=== PATIENT | male | born 1970 | race Caucasian/White ===

== ENCOUNTER 2018-01-12 09:06 | Observation (INO) ==
--- NOTE | 2018-01-12 09:38 | Emergency Department Note ---
ED Disposition Clinical Impression: Small bowel obstruction Abdominal pain Qualifiers: Abdominal location: lower abdomen, unspecified Qualified Code(s): R10.30 - Lower abdominal pain, unspecified Disposition: Admitted as Observation Condition on Discharge: Fair Time of Disposition: 12:48 - Critical Care Critical Care Time: No Attestation: On 01/12/18, the high probability of a clinically significant, sudden or life threatening deterioration of the following system(s) required my full and direct attention, intervention and personal management. The time I documented below is in addition to time spent performing reported procedures but includes the following listed in this critical care notation. Medical Decision Making - Medical Records Medical records reviewed: Yes: I reviewed the patient's medical records. - Wilber Inquiry Pt receiving controlled substance: No Wilber was queried for this patient: No Vital Signs: 01/12/18 09:06 01/12/18 11:06 Temperature 98.1 F 98.0 F Temperature Source Oral Oral Pulse Rate [Right Radial] 76 65 Respiratory Rate 16 16 Blood Pressure [Right Arm] 150/101 148/100 Blood Pressure Mean [Right Arm] 117 116 Blood Pressure Source [Right Arm] Automatic Cuff Automatic Cuff Blood Pressure Position [Right Arm] Sitting 02 Sat by Pulse Oximetry 99 99 Oxygen Delivery Method Room Air Room Air - Lab Data Lab results reviewed: Yes: I reviewed the patient's lab results. Lab Results 01/12/18 09:37: Urine Color Yellow, Urine Appearance Clear, Urine pH 6.0, Ur Specific [place] <= 1.005, Urine Protein Negative, Urine Glucose (UA) Negative, Urine Ketones Negative, Urine Blood 1+, Urine Nitrate Negative, Urine Bilirubin Negative, Urine Urobilinogen 0.2, Ur Leukocyte Esterase Negative, Urine Bacteria Trace 01/12/18 09:47: WBC 13.1 H, RBC 5.44, Hgb 15.4, Hct 47.6, MCV 87.5, MCH 28.4, MCHC 32.4, RDW 12.9, Plt Count 452 H, MPV 6.9 L, Neut % (Auto) 58.6, Lymph % ( Auto) 28.5, [place] % (Auto) 7.7, Eos % (Auto) 4.7, Baso % (Auto) 0.6, Neut # (Auto ) 7.7, Lymph # (Auto) 3.7, [place] # (Auto) 1.0, Eos # (Auto) 0.6 H, Baso # (Auto) 0.1 01/12/18 09:47: Sodium 141, Potassium 4.2, Chloride 103, Carbon Dioxide 28, Anion Gap 14.2, BUN 10, Creatinine 0.97, Estimated Creat Clear 112, Estimated GFR 82, Est GFR ( Amer) 100, Glucose 111 H, Calcium 9.6, Total Bilirubin 1.1 H, AST 22, ALT 47, Alkaline Phosphatase 89, Total Protein 8.4 H, Albumin 4.1 , Globulin 4.3 H, Albumin/Globulin Ratio 1.0 L, Lipase 72 L 01/12/18 09:47: Lactic Acid 0.9 Result diagrams: 01/12/18 09:47 01/12/18 09:47 Orders (Tests/Meds): ED MEDICATIONS Discontinued Medications Generic Name Dose Route Start Last Admin Trade Name Freq PRN Reason Stop Dose Admin Diatrizoate Meglum/Diatrizoate Sod 30 ml 01/12/18 10:30 01/12/18 10:30 Gastrografin 66%-10% 30ml PO 01/12/18 10:31 30 ml ONCE ONE Administration Sodium Chloride 1,000 mls @ 999 mls/hr 01/12/18 09:30 01/12/18 10:15 Sod Chlor 0.9% 1000ml Bag IV 01/12/18 10:30 999 mls/hr .[id number] CHENCHO Administration Iopamidol 75 ml 01/12/18 12:10 01/12/18 12:11 [id number]; 75ml Vial IV 01/12/18 12:11 75 ml ONCE ONE Administration Ketorolac Tromethamine 30 mg 01/12/18 09:28 01/12/18 10:15 Toradol 30mg/Ml Vial IV 01/12/18 09:29 30 mg ONCE ONE Administration Sodium Chloride 10 ml 01/12/18 12:10 01/12/18 12:11 Rad-Saline Flush 10ml Syringe IV 01/12/18 12:11 10 ml ONCE ONE Administration ORDERS Category Date Time Status CT abdomen pelvis w con Stat Cat Scan 01/12/18 09:42 Taken Diarrhea Panel, PCR Stat Lab 01/12/18 09:28 Ordered Blood Culture Stat Micro 01/12/18 09:47 Received - CT Data CT Scan: Abdomen, Pelvis Time Received: 12:[address] Reviewed: Yes: I have reviewed the patient's CT results, I discussed the CT results w/the radiologist, I have viewed the radiologist's interpretation Preliminary Findings: Abnormal Findings Narrative: ? dilated loops of small bowel and ? appendix at upper limits of normal...discussed with Dr. Rick and he will admit to OBS and re-evaluate pt. Keep pt NPO Abdominal Pain HPI - General Chief Complaint: Abdominal Pain Stated Complaint: Pain in Back into stomach Time Seen by Provider: 01/12/18 09:31 Mode of Arrival: Ambulatory Limitations: No Limitations Description of Symptoms (Recalled from ER Triage Doc. by RN): Back pain started thrusday across the middle of back. Pain came to abd saturday. pt describes pain as generalized abd pain across the entire abd and states "it feels like a hernia." pt reports cramps, loose stools x2 on and 1 loose stool on saturday. reports stool is semi solid today, but black in color. pt states his stools are usually always dark "because he probably takes more vitamins then he should and because he takes nexium." pt denies vomiting, but states he has tried to make himself vomit. Pt also reports that he ate wild strawberries saturday or saturday. - History of Present Illness HPI narrative: Pt comes to the ED with abd pain and back pain since ...now mostly in the Abdomen. 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 Pain seemed to start in back and now in lower abdomen bilaterally. complaint: abdominal pain Onset (ago): day(s) Consistency: intermittent Location: LLQ, RLQ Severity: moderate Quality: cramping, fullness - Related Data Home Medications Medication Instructions Recorded Confirmed Aspirin [Aspir 81] 81 mg PO DAILY 01/12/18 01/12/18 Allergies Allergy/AdvReac Type Severity Reaction Status Date / Time codeine Allergy Intermediate Vomiting Verified 01/12/18 09:27 morphine Allergy Intermediate Vomiting Verified 01/12/18 09:27 Penicillins Allergy Intermediate Hives Verified 01/12/18 09:27 [facility] History I have reviewed the patient's past medical history: Yes Medical History: Denies:: Diabetes Mellitus Type 1, Diabetes Mellitus Type 2, MRSA Amputation: No - Social History Smoking Status: Current every day smoker Tobacco Type: cigarettes, smokeless tobacco # Packs/Day (cigarettes): 1 Alcohol Intake: never - Psychiatric History Expresses thoughts of harming self/others: None Suicide Plan Description: No Plan ROS Obtained: Yes All systems reviewed & no additional complaints - Constitutional Constitutional: Reports system reviewed and no additional complaints, except as docu - Eyes Eyes: Reports system reviewed and no additional complaints, except as docu - Gastrointestinal Gastrointestingal: Reports: system reviewed and no additional complaints, except as docu Physical Exam - General General appearance: alert, in no apparent distress - Head Head exam: atraumatic - Eye Eye exam: Present: normal appearance - ENT ENT exam: Present: normal exam - Neck Neck exam: Present: normal inspection - Respiratory Respiratory exam: Present: normal lung sounds bilaterally - Cardiovascular Cardiovascular exam: Present: regular rate, normal rhythm - Abdominal Exam Abdominal exam: Present: tenderness (in lower abdomen bilaterally but no rebound or guarding), normal bowel sounds - Neurological Exam Neurological exam: Present: alert, oriented X3 - Psychiatric Psychiatric exam: Present: normal affect
[2018-01-12 09:44] LABS: Appearance,Urine CLEAR (Clear); Bilirubin,Urine Negative (Negative); Blood, Urine 1+ (Negative); Color,Urine YELLOW (Yellow); Glucose,Urine (UA) Negative (Negative); Ketones,Urine Negative (Negative); Leukocyte Esterase,Urine Negative (Negative); Microscopic, Urine URINE MICROSCOPIC (MICROSCOPIC); Protein,Urine Negative (Negative); Specific Gravity, Urine <= 1.005 (1.005-1.030); Urobilinogen,Urine 0.2 EU/dl (0.2)
[2018-01-12 09:50] LABS: Bacteria,Urine Trace /lpf
[2018-01-12 10:04] LABS: Basophils # 0.1 K/mm3 (0-0.2); Basophils % 0.6 % (0.1-2.0); Eosinophils # 0.6 K/mm3 (0.0-0.4); Eosinophils % 4.7 % (0.1-12.0); Hematocrit 47.6 % (42.0-52.0); Hemoglobin 15.4 g/dL (14.1-18.0); Lymphocytes # 3.7 K/mm3 (0.7-4.5); Lymphocytes % 28.5 K/mm3 (10-50); Mean Corpuscular HGB Conc 32.4 g/dL (31.8-35.4); Mean Corpuscular Hemoglobin 28.4 pg (27.0-31.2); Mean Corpuscular Volume 87.5 fl (80-94); Mean Platelet Volume 6.9 fl (7.4-10.4); Monocytes % 7.7 % (1.7-9.3); Neutrophils # 7.7 K/mm3 (1.8-7.8); Neutrophils % 58.6 % (37.0-80.0); Platelet Count 452 K/mm3 (142-424); Red Blood Count 5.44 M/mm3 (4.60-6.20); Red Cell Distribution Width 12.9 % (11.5-17.5); White Blood Count 13.1 K/mm3 (4.8-10.8)
[2018-01-12 10:20] LABS: Albumin Level 4.1 gm/dL (3.4-5.0); Anion Gap 14.2 mEq/L (5-15); Bilirubin,Total 1.1 mg/dL (0.2-1.0); Calcium 9.6 mg/dL (8.5-10.1); Globulin 4.3 gm/dl (1.3-3.2); Potassium 4.2 mmoL/L (3.5-5.1); Total Protein,Serum 8.4 gm/dL (6.4-8.2)
--- NOTE | 2018-01-12 14:03 | History & Physical Report ---
HPI HPI: Chief complaint: Abdominal pain Patient is a 48-year-old white had developed some lower mid back pain on , 01/09/18. Patient states that 2 days prior to that he had eaten at least a handful of wild strawberries. The back pain was followed by several loose stools which he describes as water. He then had radiation of pain around to the mid anterior abdomen. He had normalization of his bowel movements. He states that he has felt full and has bloating postprandially. He has not had any nausea. He did try to vomit to help alleviate his symptoms. He presented to the emergency department this morning with these ongoing symptoms. He was found to have a mild leukocytosis with normal differential. He underwent CT scan with IV and oral contrast. Preliminary report was equivocal with some mild small bowel distention and 7 mm appendix reportedly. Surgery was contacted regarding recommendations. Plan was for admission for observation for possible early bowel obstruction versus early appendicitis. [facility] History Medical History: Reports:: Gastroesophageal Reflux Disease(GERD), Hypertension Denies:: Diabetes Mellitus Type 1, Diabetes Mellitus Type 2, MRSA Other Surgeries: Yes: Hernia Repair Amputation: No - *Social History Smoking Status: Current every day smoker Tobacco Type: cigarettes, smokeless tobacco # Packs/Day (cigarettes): 1 Alcohol Intake: never - Psychiatric History Expresses thoughts of harming self/others: None Suicide Plan Description: No Plan Review of Systems - Constitutional Denies anorexia - Eyes Denies change in vision - ENT Denies abnormal hearing - *Cardiovascular Denies chest pain - *Respiratory Denies shortness of breath - *Gastrointestinal Reports abdominal pain, Reports belching, Reports bloating, Reports change in bowel habits, Reports loose stools, Reports heartburn, Reports feeling full early - *Genitourinary Denies difficulty urinating - *Musculoskeletal Denies abnormal walking - *Neurologic Denies dizziness - Psychiatric Denies anxiety Meds Home Medications Medication Instructions Recorded Confirmed Type Aspirin [Aspir 81] 81 mg PO DAILY 01/12/18 01/12/18 History Allergies Allergy/AdvReac Type Severity Reaction Status Date / Time codeine Allergy Intermediate Vomiting Verified 01/12/18 09:27 morphine Allergy Intermediate Vomiting Verified 01/12/18 09:27 Penicillins Allergy Intermediate Hives Verified 01/12/18 09:27 Exam Vital signs and Labs for Last 24 Hours: Temp Pulse Resp BP Pulse Ox 98.0 F 64 18 149/96 100 01/12/18 13:27 01/12/18 13:27 01/12/18 13:27 01/12/18 13:27 01/12/18 12:30 Laboratory Results - last 24 hr 01/12/18 09:37: Urine Color Yellow, Urine Appearance Clear, Urine pH 6.0, Ur Specific [place] <= 1.005, Urine Protein Negative, Urine Glucose (UA) Negative, Urine Ketones Negative, Urine Blood 1+, Urine Nitrate Negative, Urine Bilirubin Negative, Urine Urobilinogen 0.2, Ur Leukocyte Esterase Negative, Urine Bacteria Trace 01/12/18 09:47: WBC 13.1 H, RBC 5.44, Hgb 15.4, Hct 47.6, MCV 87.5, MCH 28.4, MCHC 32.4, RDW 12.9, Plt Count 452 H, MPV 6.9 L, Neut % (Auto) 58.6, Lymph % ( Auto) 28.5, [place] % (Auto) 7.7, Eos % (Auto) 4.7, Baso % (Auto) 0.6, Neut # (Auto ) 7.7, Lymph # (Auto) 3.7, [place] # (Auto) 1.0, Eos # (Auto) 0.6 H, Baso # (Auto) 0.1 01/12/18 09:47: Sodium 141, Potassium 4.2, Chloride 103, Carbon Dioxide 28, Anion Gap 14.2, BUN 10, Creatinine 0.97, Estimated Creat Clear 112, Estimated GFR 82, Est GFR ( Amer) 100, Glucose 111 H, Calcium 9.6, Total Bilirubin 1.1 H, AST 22, ALT 47, Alkaline Phosphatase 89, Total Protein 8.4 H, Albumin 4.1 , Globulin 4.3 H, Albumin/Globulin Ratio 1.0 L, Lipase 72 L 01/12/18 09:47: Lactic Acid 0.9 I & O for Last 24 hours: Intake & Output 01/10/18 01/11/18 01/12/18 01/13/18 11:59 11:59 11:59 11:59 Weight 190 lb - Constitutional no acute distress - *Routine Respiratory Exam Present: CTA bilaterally - *Routine Cardiovascular Exam Present: RRR - *Routine Abdominal Exam Present: soft, tenderness Comments: He has mild tenderness in the left lower quadrant with deep palpation. There is no guarding or rebound. Results - Results Lab Results Last 24 Hours:: Laboratory Results - last 24 hr 01/12/18 09:37: Urine Color Yellow, Urine Appearance Clear, Urine pH 6.0, Ur Specific [place] <= 1.005, Urine Protein Negative, Urine Glucose (UA) Negative, Urine Ketones Negative, Urine Blood 1+, Urine Nitrate Negative, Urine Bilirubin Negative, Urine Urobilinogen 0.2, Ur Leukocyte Esterase Negative, Urine Bacteria Trace 01/12/18 09:47: WBC 13.1 H, RBC 5.44, Hgb 15.4, Hct 47.6, MCV 87.5, MCH 28.4, MCHC 32.4, RDW 12.9, Plt Count 452 H, MPV 6.9 L, Neut % (Auto) 58.6, Lymph % ( Auto) 28.5, [place] % (Auto) 7.7, Eos % (Auto) 4.7, Baso % (Auto) 0.6, Neut # (Auto ) 7.7, Lymph # (Auto) 3.7, [place] # (Auto) 1.0, Eos # (Auto) 0.6 H, Baso # (Auto) 0.1 01/12/18 09:47: Sodium 141, Potassium 4.2, Chloride 103, Carbon Dioxide 28, Anion Gap 14.2, BUN 10, Creatinine 0.97, Estimated Creat Clear 112, Estimated GFR 82, Est GFR ( Amer) 100, Glucose 111 H, Calcium 9.6, Total Bilirubin 1.1 H, AST 22, ALT 47, Alkaline Phosphatase 89, Total Protein 8.4 H, Albumin 4.1 , Globulin 4.3 H, Albumin/Globulin Ratio 1.0 L, Lipase 72 L 01/12/18 09:47: Lactic Acid 0.9 Assessment and Plan - Assessment and plan all Dx Assessment and Plan for all problems:: I reviewed the CT scan images. Does appear as though he has some prominent small bowel without clear obstruction. Appendix also appears to be clearly identified and is prominent without definite appendicitis. At this time I will await the official report on the CT scan. If remaining equivocal may plan for clear liquids and n.p.o. after midnight with observation and serial abdominal exams.
--- NOTE | 2018-01-12 16:39 | Operative Note ---
Date of procedure: 01/12/18 Pre-op Diagnosis:: Acute appendicitis Post-op Diagnosis:: Same Procedure performed:: Laparoscopic appendectomy Surgeon:: Mich Rick MD Anesthesia: LEE Estimated blood loss (mL): 15 Clinical Note:: Patient is a 48-year-old white male. He presented to the emergency department with an interesting history. He states that about 5 or 6 days ago he had eaten some wild strawberries. On , 01/09/18 he had some lower mid back pain which then radiated around to his abdomen. This was somewhat diffusely located. He had some bloating and early satiety. Initially the patient had some loose stools. His bowels normalized and the pain persisted. He presented to the emergency department at [facility] this morning. Is found to have a leukocytosis. He underwent CT scan which initially revealed some equivocal findings of mild small bowel dilatation and prominent appendix. C report revealed findings of some mild small bowel distention possibly related to enteritis versus ileus. He also had a 10 mm appendix with some periappendiceal stranding consistent with early acute appendicitis. Plan was made to proceed with appendectomy. Operative findings:: He had a somewhat edematous mildly thickened appendix. There was some diffuse erythema of the small bowel. No evidence of any small bowel obstruction. There is small amount of fluid in the pelvis and right paracolic gutter. Operative note:: Consent was obtained. Patient was taken to the operating room. He was given preoperative intravenous antibiotics. He was placed in supine position. General anesthesia was induced. Steven catheter was placed. Abdomen was prepped and draped in the standard surgical fashion. Subumbilical skin incision was made and while performing abdominal wall lift Veress needle was inserted. CO2 pneumoperitoneum was achieved 15 mmHg. 10/12 mm optical trocar was inserted the umbilicus. Intraperitoneal contents were visualized. A 5 mm trocar was inserted in the suprapubic location. 5 mm trocar was inserted in the right upper abdomen. 10 mm laparoscope was replaced with the 5 mm 30 laparoscope. The cecum was mobilized medially. There was some fluid in the right paracolic gutter and pelvis. This was suctioned free. Appendix was identified and retracted anteriorly. It was somewhat edematous and mildly thickened. Mesoappendix was carefully divided with Malcom ultrasonic harmonic lorene with care taken to coagulate the appendiceal artery. Dissection was carried down to the appendiceal base which was divided with a MEL linear cutting stapling device. Appendix was placed within an Endo Catch retrieval device removed from the peritoneal cavity via the umbilical trocar site. The appendiceal stump was inspected for hemostasis and integrity which was assured. Laparoscopic surveillance was carried out. He had somewhat of a fatty liver. Gallbladder appeared rather unremarkable. Stomach appeared normal. As stated above, there were a few loops of erythematous appearing small bowel but no evidence of any obvious small bowel obstruction. Thorough irrigation was performed throughout the peritoneal cavity. Trochars were removed as CO2 pneumoperitoneum was evacuated. Fascia at the umbilicus was closed with a 0 Vicryl [id number] suture. Local anesthetic was infiltrated into all incisions. Skin incisions were closed with 4-0 Monocryl in a subcuticular fashion. Steri-Strips and clean dry sterile dressings were applied. Condition: stable Disposition: PACU Specimens:: Appendix Complications:: None immediately apparent at the time of this dictation
--- NOTE | 2018-01-12 16:54 | Progress Note ---
[facility] Anesthesia Checklist - Patient Identification Patient Identification: Arm Band, Verbal (Name & ) - Structural Data Admitted From: Inpatient Consent for Planned Operative Procedure(s) Verified: Yes Verified Documents: Surgical Consent, History and Physical - NPO Status Verified Time NPO: 07:00 (Coffee) - Additional verifications Patient : No (NA) Anesthesia Reactions: No - Airway Assessment C-Spine Mobility Assessed: Yes TMJ Mobility Assessed: Yes Dentition: Dentures-good fit (Upper denture, lower partial) - Neurological Assessment Level of Consciousness: Awake Hx Seizures: No Numbness or tingling in extremities: No - Anesthesia Plan Anesthesia Risk discussed: Yes Anesthesia Plan: Verified ASA Class: II (Emergency) Anesthesia Type: General [facility] Anesthesia HX I have reviewed the patient's past medical history: Yes Medical History: Reports:: Gastroesophageal Reflux Disease(GERD), Hypertension, Myocardial Infarction Denies:: Diabetes Mellitus Type 1, Diabetes Mellitus Type 2, MRSA Other Surgeries: Yes: Cardiac Catheterization (2013), Hernia Repair Amputation: No
--- NOTE | 2018-01-12 16:55 | Progress Note ---
[facility] Anesthesia Record Part I Intake, IV Amount: 500 Estimated blood loss (mL): 10 Urine output (mL): 50 Blood Products used (#): none Blood Pressure: 126/69 SaO2: 92 Pulse Rate: 69 Respiratory Rate: 14 Temperature: 98.0 F Patient is:: Drowsy, Nasal O2 Stable to PACU at:: 16:45
--- NOTE | 2018-01-12 16:55 | Progress Note ---
[facility] Anesthesia Record Part II Discharge Time: 17:15 Destination: Medical Surgical Department PACU nurse assessment reviewed?: Yes Patient Condition:: Good Anesthesia Complications:: None
[2018-01-13 07:19] LABS: Eosinophils # 0.1 K/mm3 (0.0-0.4); Mean Platelet Volume 6.9 fl (7.4-10.4); Monocytes # 0.8 K/mm3 (0.1-1.0)
[2018-01-13 07:25] VITALS: BP 136/82
[2018-01-13 07:27] LABS: Basophils % 0.3 % (0.1-2.0); Eosinophils % 0.8 % (0.1-12.0); Hematocrit 38.3 % (42.0-52.0); Lymphocytes # 2.4 K/mm3 (0.7-4.5); Lymphocytes % 20.6 K/mm3 (10-50); Mean Corpuscular HGB Conc 32.5 g/dL (31.8-35.4); Mean Corpuscular Hemoglobin 28.6 pg (27.0-31.2); Neutrophils # 8.4 K/mm3 (1.8-7.8); Neutrophils % 71.3 % (37.0-80.0); Platelet Count 368 K/mm3 (142-424); Red Blood Count 4.35 M/mm3 (4.60-6.20); Red Cell Distribution Width 12.8 % (11.5-17.5); White Blood Count 11.8 K/mm3 (4.8-10.8)
[2018-01-13 07:36] LABS: Albumin Level 3.1 gm/dL (3.4-5.0); Albumin/Globulin Ratio 0.9 (1.1-1.8); Anion Gap 15.2 mEq/L (5-15); Bilirubin,Total 0.6 mg/dL (0.2-1.0); Globulin 3.5 gm/dl (1.3-3.2); Potassium 4.2 mmoL/L (3.5-5.1); Total Protein,Serum 6.6 gm/dL (6.4-8.2)
[2018-01-13 07:58] LABS: Hemoglobin 12.4 g/dL (14.1-18.0)
[2018-01-13 08:12] LABS: Calcium 8.6 mg/dL (8.5-10.1)
--- NOTE | 2018-01-13 08:26 | Pharmacy Consult Notes ---
[facility] Pharmacy VTE Monitoring - Patient Demographics Admission date: 01/12/18 Report Date: 01/13/18 Time: 08:26 Allergies/Adverse Reactions: Patient Allergies codeine Allergy (Intermediate, Verified 01/12/18 09:27) Vomiting morphine Allergy (Intermediate, Verified 01/12/18 09:27) Vomiting Penicillins Allergy (Intermediate, Verified 01/12/18 09:27) Hives Height: 1.78 m Weight: 86.183 kg Patient Problems: Current Active Problems Abdominal pain (Acute) Small bowel obstruction (Acute) - VTE Risk Labs: VTE Related Lab Results Hgb 12.4 g/dL (14.1-18.0) L D 01/13/18 06:25 Hct 38.3 % (42.0-52.0) L 01/13/18 06:25 Plt Count 368 K/mm3 (142-424) 01/13/18 06:25 BUN 9 mg/dL (7-18) 01/13/18 06:25 Creatinine 0.82 mg/dL (0.70-1.30) 01/13/18 06:25 Estimated Creat Clear 133 mL/min (0-300) 01/13/18 06:25 Was VTE Risk Assessment Performed: Yes VTE Score: 2 VTE Risk Level: Low Risk - Prophylaxis VTE Prophylaxis Ordered?: Yes Types of VTE Prophylaxis: TEDS Knee High Location of Applied Device: Bilateral Lower Extremeties - VTE Diagnosis Confirmed Treatment or plan recommended: Continue Current Treatment
--- NOTE | 2018-01-13 09:15 | Progress Note ---
Subjective Patient reports: feels better Narrative: Overall patient feels better. Lower abdominal pain has resolved. Bloating has resolved. He does describe some abdominal soreness. He states that with breakfast this morning he vomited. He has not taken any diuretic pain medication but only Toradol. Exam Vital signs and Labs for Last 24 Hours: Temp Pulse Resp BP Pulse Ox 98.0 F 64 18 136/82 98 01/13/18 07:24 01/13/18 07:24 01/13/18 07:24 01/13/18 07:24 01/13/18 08:09 Laboratory Results - last 24 hr 01/12/18 09:37: Urine Color Yellow, Urine Appearance Clear, Urine pH 6.0, Ur Specific [place] <= 1.005, Urine Protein Negative, Urine Glucose (UA) Negative, Urine Ketones Negative, Urine Blood 1+, Urine Nitrate Negative, Urine Bilirubin Negative, Urine Urobilinogen 0.2, Ur Leukocyte Esterase Negative, Urine RBC 5-10 , Urine Bacteria Trace 01/12/18 09:47: WBC 13.1 H, RBC 5.44, Hgb 15.4, Hct 47.6, MCV 87.5, MCH 28.4, MCHC 32.4, RDW 12.9, Plt Count 452 H, MPV 6.9 L, Neut % (Auto) 58.6, Lymph % ( Auto) 28.5, [place] % (Auto) 7.7, Eos % (Auto) 4.7, Baso % (Auto) 0.6, Neut # (Auto ) 7.7, Lymph # (Auto) 3.7, [place] # (Auto) 1.0, Eos # (Auto) 0.6 H, Baso # (Auto) 0.1 01/12/18 09:47: Sodium 141, Potassium 4.2, Chloride 103, Carbon Dioxide 28, Anion Gap 14.2, BUN 10, Creatinine 0.97, Estimated Creat Clear 112, Estimated GFR 82, Est GFR ( Amer) 100, Glucose 111 H, Calcium 9.6, Total Bilirubin 1.1 H, AST 22, ALT 47, Alkaline Phosphatase 89, Total Protein 8.4 H, Albumin 4.1 , Globulin 4.3 H, Albumin/Globulin Ratio 1.0 L, Lipase 72 L 01/12/18 09:47: Lactic Acid 0.9 01/12/18 15:45: Urine Color Yellow, Urine Appearance Clear, Urine pH 6.0, Ur Specific [place] 1.010, Urine Protein Negative, Urine Glucose (UA) Negative, Urine Ketones Negative, Urine Blood 2+, Urine Nitrate Negative, Urine Bilirubin Negative, Urine Urobilinogen 0.2, Ur Leukocyte Esterase Negative, Urine RBC 5-10 01/13/18 06:25: WBC 11.8 H, RBC 4.35 L, Hgb 12.4 L D, Hct 38.3 L, MCV 88.0, MCH 28.6, MCHC 32.5, RDW 12.8, Plt Count 368, MPV 6.9 L, Neut % (Auto) 71.3, Lymph % (Auto) 20.6, [place] % (Auto) 7.0, Eos % (Auto) 0.8, Baso % (Auto) 0.3, Neut # ( Auto) 8.4 H, Lymph # (Auto) 2.4, [place] # (Auto) 0.8, Eos # (Auto) 0.1, Baso # ( Auto) 0.0 01/13/18 06:25: Sodium 143, Potassium 4.2, Chloride 108 H, Carbon Dioxide 24, Anion Gap 15.2 H, BUN 9, Creatinine 0.82, Estimated Creat Clear 133, Estimated GFR 100, Est GFR ( Amer) 121 D, Glucose 109 H, Calcium 8.6 D, Total Bilirubin 0.6, AST 17, ALT 44, Alkaline Phosphatase 69, Total Protein 6.6, Albumin 3.1 L D, Globulin 3.5 H, Albumin/Globulin Ratio 0.9 L I & O for Last 24 hours: Intake & Output 01/10/18 01/11/18 01/12/18 01/13/18 11:59 11:59 11:59 11:59 Intake Total 2680 / 2680 Output Total 850 / 850 Balance 1830 / 1830 Weight 190 lb 190 lb - *Routine Abdominal Exam Present: tenderness Progress Note: A&P Assessment and Plan for All Diagnoses:: Plan to continue observation. If patient tolerates lunch likely will be able to discharge home this afternoon.
--- NOTE | 2018-02-11 14:23 | Discharge Summary ---
General - General Admission date:: 01/12/18 Discharge date: 01/13/18 HPI HPI: Chief complaint: Abdominal pain Patient is a 48-year-old white had developed some lower mid back pain on , 01/09/18. Patient states that 2 days prior to that he had eaten at least a handful of wild strawberries. The back pain was followed by several loose stools which he describes as water. He then had radiation of pain around to the mid anterior abdomen. He had normalization of his bowel movements. He states that he has felt full and has bloating postprandially. He has not had any nausea. He did try to vomit to help alleviate his symptoms. He presented to the emergency department this morning with these ongoing symptoms. He was found to have a mild leukocytosis with normal differential. He underwent CT scan with IV and oral contrast. Preliminary report was equivocal with some mild small bowel distention and 7 mm appendix reportedly. Surgery was contacted regarding recommendations. Plan was for admission for observation for possible early bowel obstruction versus early appendicitis. Hospital Course Hospital Course: Patient was taken to the operating room for appendectomy. He underwent laparoscopic appendectomy. He was found to have an edematous appendix. Please see operative dictation for complete details. He was admitted postoperatively for recovery and continuation of antibiotics. Following morning he had some nausea. However, overall he felt better. He was observed until that afternoon on postoperative day #1 doing well and discharged home at that time. Objective Vital signs: Temp Pulse Resp BP Pulse Ox 98.0 F 64 18 136/82 98 01/13/18 07:24 01/13/18 07:24 01/13/18 07:24 01/13/18 07:24 01/13/18 08:09 Discharge Plan - Patient Discharge Instructions ACTIVITY: No heavy lifting DIET: advance to your usual diet Additional Instructions: No work until after office appointment Patient Instructions: Appendicitis, Acute Abdominal Pain, Surgical Site Infection - Follow up Plan Follow up with: Mich Rick MD [Staff Physician] - 01/24/18 Disposition: Home, Self-Care
== END 2018-01-13 13:56 | disposition home or self-care (01) ==
LOC: 2ND 09:06 → ER 09:06 → 2ND 13:29
PROVIDERS: ADMIT Surgery; ATTEND Surgery

== ENCOUNTER → 2018-09-02 19:21 | Outpatient (CLI) | payer BC, SELFPAY ==
[2018-09-02 19:43] LABS: Basophils # 0.1 K/mm3 (0-0.2); Basophils % 1.2 % (0.1-2.0); Eosinophils # 0.4 K/mm3 (0.0-0.4); Hematocrit 43.5 % (42.0-52.0); Hemoglobin 14.4 g/dL (14.1-18.0); Lymphocytes # 4.1 K/mm3 (0.7-4.5); Lymphocytes % 39.1 % (10-50); Mean Corpuscular HGB Conc 33.2 g/dL (31.8-35.4); Mean Corpuscular Hemoglobin 29.8 pg (27.0-31.2); Mean Corpuscular Volume 89.8 fl (80-94); Mean Platelet Volume 6.9 fl (7.4-10.4); Monocytes # 0.6 K/mm3 (0.1-1.0); Monocytes % 6.1 % (1.7-9.3); Neutrophils # 5.2 K/mm3 (1.8-7.8); Neutrophils % 49.7 % (37.0-80.0); Platelet Count 451 K/mm3 (142-424); Red Blood Count 4.84 M/mm3 (4.60-6.20); Red Cell Distribution Width 13.2 % (11.5-17.5); White Blood Count 10.5 K/mm3 (4.8-10.8)
[2018-09-02 20:11] LABS: Alanine Aminotransferase 153 U/L (12-78); Albumin Level 4.6 gm/dL (3.4-5.0); Albumin/Globulin Ratio 1.3 (1.1-1.8); Alkaline Phosphatase 79 U/L (46-116); Anion Gap 15.2 mEq/L (5-15); Aspartate Amino Transferase 44 U/L (15-37); Bilirubin,Total 0.8 mg/dL (0.2-1.0); Blood Urea Nitrogen 11 mg/dL (7-18); Calcium 9.7 mg/dL (8.5-10.1); Carbon Dioxide 27 mmol/L (21.0-32.0); Chloride 103 mmol/L (98-107); Chol/HDL Ratio 5.4 (1-3.5); Cholesterol 236 mg/dL (140-200); Creatinine,Serum 0.99 mg/dL (0.70-1.30); Estimated Glomerular Filt Rate 80 ml/min (>60); GFR (African American) 97 ML/MIN (>60); Globulin 3.6 gm/dl (1.3-3.2); Glucose 97 mg/dL (74-106); HDL Cholesterol 44 mg/dL (27-67); LDL Cholesterol 144 mg/dL (0-130); Potassium 4.2 mmoL/L (3.5-5.1); Sodium 141 mmol/L (136-145); T4 (Thyroxine) 8.6 ug/dl (4.7-13.3); Thyroid Stimulating Hormone 2.25 uIU/ml (0.358-3.740); Total Protein,Serum 8.2 gm/dL (6.4-8.2); Triglycerides 238 mg/dL (30-200); VLDL Cholesterol 48 mg/dL (0-40)
[2018-09-02 20:43] LABS: Hemoglobin A1C 5.9 % (0.0-7.0)
[2018-09-05 08:47] LABS: Hep A Ab, IgM Negative (Negative); Hepatitis B Core Antibody IgM Negative (Negative); Hepatitis B Surface Antigen Negative (Negative)
[2018-09-05 17:16] LABS: Hepatitis C Antibody <0.1 s/co ratio (0.0-0.9)
== END ==
PROVIDERS: Visit Provider Physician Assistant
DX: I10 Essential (primary) hypertension (principal)
CPT/HCPCS: 80053; 80061; 80074; 83036; 84436; 84443; 85025

== ENCOUNTER → 2018-09-10 07:44 | Outpatient (CLI) | payer BC, SELFPAY ==
--- NOTE | 2018-09-10 07:49 | AS_ITS ---
Renal Arterial Duplex Indications: 405.91 Unspecified renovascular hypertension. IMPRESSIONS Normal bilateral renal artery evaluation.. History: Risk factors: Previoustobacco use-quit 2017. Hypertension. Complete renal arterial duplex. Duplex scan and Doppler flow study including spectral analysis, color and stephens scale imaging. Height: Height: 182.9cm. Height: 72in. Weight: Weight: 87.5kg. Weight: 192.6lb. Body mass index: BMI: 26.2kg/m^2. Body surface area: BSA: 2.12m^2. Location: Vascular laboratory. Patient status: Outpatient. Tables: Arterial flow: + +--------+--------+ Location V sys V ed + +--------+--------+ Right renal - proximal 110cm/s 28.8cm/s + +--------+--------+ Right renal - mid 104cm/s 25.9cm/s + +--------+--------+ Right renal - distal 133cm/s 43.8cm/s + +--------+--------+ Left renal - proximal 75.6cm/s 21.1cm/s + +--------+--------+ Left renal - mid 104cm/s 41.7cm/s + +--------+--------+ Left renal - distal 65.8cm/s 20.4cm/s + +--------+--------+ Right renal-origin 102cm/s 16cm/s + +--------+--------+ Left renal-origin 119cm/s 32.5cm/s + +--------+--------+ Renal anatomy: + +------+------+ Left Right + +------+------+ Long axis 11.3cm 11.2cm + +------+------+ Short axis 7.4cm 8.9cm + +------+------+ Cortical thickness 1.3cm 1.3cm + +------+------+ Velocity ratios: + +-----+ V sys + +-----+ Right renal/aortic 1.9 + +-----+ Left renal/aortic 1.7 + +-----+ (Report amended ) Electronically signed by: Salbador Salgado [id number]
--- NOTE | 2018-09-10 07:49 | CI_ITS ---
Cerebrovascular Exam Indications: Headache 780.4. IMPRESSIONS 1. The bilateral vertebral arteries are patent with normal antegrade flow. 2. Study suggests 20-49% stenosis involving the right internal carotid artery. 3. Study suggests less than 20% stenosis involving the left internal carotid artery. History: Risk factors: Priortobacco use. Hypertension. Carotid duplex study. Complete study and Doppler flow study including spectral analysis, color and stephens scale imaging. Height: Height: 182.9cm. Height: 72in. Weight: Weight: 86.2kg. Weight: 189.6lb. Body mass index: BMI: 25.8kg/m^2. Body surface area: BSA: 2.1m^2. Location: Vascular laboratory. Patient status: Outpatient. Tables: Arterial flow: + +--------+--------+ Location V sys V ed + +--------+--------+ Right CCA - proximal 129cm/s 36.1cm/s + +--------+--------+ Right CCA - distal 116cm/s 33cm/s + +--------+--------+ Right ECA 105cm/s 29.9cm/s + +--------+--------+ Right ICA - proximal 48.7cm/s 22.8cm/s + +--------+--------+ Right ICA - mid 73.9cm/s 33cm/s + +--------+--------+ Right ICA - distal 71.5cm/s 33.8cm/s + +--------+--------+ Right vertebral 56.6cm/s 16.5cm/s + +--------+--------+ Left CCA - proximal 182cm/s 39.3cm/s + +--------+--------+ Left CCA - distal 104cm/s 29.1cm/s + +--------+--------+ Left ECA 73.9cm/s 18.9cm/s + +--------+--------+ Left ICA - proximal 65.2cm/s 22cm/s + +--------+--------+ Left ICA - mid 74.6cm/s 31.4cm/s + +--------+--------+ Left ICA - distal 99.8cm/s 37.7cm/s + +--------+--------+ Left vertebral 62.1cm/s 23.6cm/s + +--------+--------+ Velocity ratios: + + + + + + Right, V sys Right, V ed Left, V sys Left, V ed + + + + + + Max ICA/dist CCA 0.64 1.02 0.96 1.3 + + + + + + (Report amended ) Electronically signed by: Salbador Salgado [id number]
== END ==
PROVIDERS: PCP Physician Assistant; Visit Provider Physician Assistant
DX: I10 Essential (primary) hypertension (principal)
CPT/HCPCS: 93880; 93976

== ENCOUNTER → 2020-06-27 17:52 | Outpatient (CLI) | payer BC, SELFPAY ==
[2020-06-27 18:31] LABS: Basophils # 0.1 K/mm3 (0-0.2); Basophils % 0.8 % (0.1-2.0); Eosinophils # 0.6 K/mm3 (0.0-0.4); Eosinophils % 5.1 % (0.1-12.0); Hematocrit 43.5 % (42.0-52.0); Hemoglobin 14.8 g/dL (14.1-18.0); Lymphocytes # 4.2 K/mm3 (0.7-4.5); Mean Corpuscular Hemoglobin 29.8 pg (27.0-31.2); Mean Corpuscular Volume 87.7 fl (80-94); Mean Platelet Volume 8.1 fl (7.4-10.4); Monocytes # 0.9 K/mm3 (0.1-1.0); Neutrophils # 5.3 K/mm3 (1.8-7.8); Neutrophils % 48.1 % (37.0-80.0); Platelet Count 392 K/mm3 (142-424); Red Blood Count 4.96 M/mm3 (4.60-6.20); Red Cell Distribution Width 13.2 % (11.5-17.5); White Blood Count 11.1 K/mm3 (4.8-10.8)
[2020-06-27 18:32] LABS: Alanine Aminotransferase 66 U/L (12-78); Albumin Level 4.9 g/dl (3.5-5.0); Albumin/Globulin Ratio 1.8 (1.1-1.8); Alkaline Phosphatase 83 U/L (38-126); Aspartate Amino Transferase 37 U/L (17-59); Bilirubin,Total 0.7 mg/dl (0.2-1.3); Blood Urea Nitrogen 13 mg/dl (9-20); Calcium 10.2 mg/dl (8.4-10.2); Carbon Dioxide 25 mmol/L (22.0-30.0); Chloride 105 mmol/L (98-107); Chol/HDL Ratio 5.3 (1-3.5); Cholesterol 213 mg/dl (140-200); Estimated Glomerular Filt Rate 89 ml/min (>60); GFR (African American) 108 ML/MIN (>60); Globulin 2.8 g/dL (1.3-3.2); Glucose 86 mg/dl (74-100); HDL Cholesterol 40 mg/dl (40-60); Sodium 143 mmol/L (136-145); Total Protein,Serum 7.7 g/dl (6.3-8.2); Triglycerides 303 mg/dl (30-150); VLDL Cholesterol 61 mg/dL (0-40)
[2020-06-27 18:43] LABS: Direct LDL Cholesterol 137.21 mg/dL (100-129)
[2020-06-27 18:49] LABS: T4 (Thyroxine) 7.3 ug/dl (5.53-11.0)
[2020-06-27 19:02] LABS: Prostate Specific Ag Screen 1.6 ng/ml (0.0-4.0); Thyroid Stimulating Hormone 0.48 uIU/mL (0.465-4.68)
== END ==
PROVIDERS: Visit Provider Physician Assistant
DX: I10 Essential (primary) hypertension (principal); Z79.899 Other long term (current) drug therapy
CPT/HCPCS: 80053; 80061; 84436; 84443; 85025; G0103

== ENCOUNTER → 2021-11-14 13:21 | Outpatient (CLI) | payer BC, SELFPAY ==
[2021-11-14 13:27] LABS: Basophils # 0.2 K/mm3 (0-0.2); Basophils % 1.3 % (0.1-2.0); Eosinophils # 0.6 K/mm3 (0.0-0.4); Eosinophils % 5.1 % (0.1-12.0); Hematocrit 46.4 % (42.0-52.0); Hemoglobin 15.3 g/dL (14.1-18.0); Lymphocytes # 3.5 K/mm3 (0.7-4.5); Lymphocytes % 30.2 % (10-50); Mean Corpuscular Hemoglobin 30.7 pg (27.0-31.2); Mean Corpuscular Volume 93.1 fl (80-94); Mean Platelet Volume 8.9 fl (7.4-10.4); Monocytes # 0.8 K/mm3 (0.1-1.0); Neutrophils # 6.5 K/mm3 (1.8-7.8); Neutrophils % 56.4 % (37.0-80.0); Platelet Count 417 K/mm3 (142-424); Red Blood Count 4.98 M/mm3 (4.60-6.20); Red Cell Distribution Width 13.4 % (11.5-17.5); White Blood Count 11.5 K/mm3 (4.8-10.8)
[2021-11-14 14:13] LABS: Alanine Aminotransferase 101 U/L (12-78); Albumin/Globulin Ratio 1.9 (1.1-1.8); Alkaline Phosphatase 72 U/L (38-126); Anion Gap 15.5 mEq/L (5-15); Aspartate Amino Transferase 61 U/L (17-59); Bilirubin,Total 1.1 mg/dl (0.2-1.3); Blood Urea Nitrogen 16 mg/dl (9-20); Calcium 9.9 mg/dl (8.4-10.2); Carbon Dioxide 23 mmol/L (22.0-30.0); Chloride 108 mmol/L (98-107); Cholesterol 185 mg/dl (140-200); Estimated Glomerular Filt Rate 89 ml/min (>60); GFR (African American) 107 ML/MIN (>60); Globulin 2.7 g/dL (1.3-3.2); Glucose 97 mg/dl (74-100); HDL Cholesterol 37 mg/dl (40-60); Potassium 4.5 mmoL/L (3.5-5.1); Sodium 142 mmol/L (136-145); Total Protein,Serum 7.7 g/dl (6.3-8.2); Triglycerides 172 mg/dl (30-150); VLDL Cholesterol 34 mg/dL (0-40)
[2021-11-14 14:24] LABS: Direct LDL Cholesterol 108.67 mg/dL (100-129)
[2021-11-14 14:28] LABS: 25-OH Vitamin D, Total 47.9 ng/mL (30-100)
[2021-11-14 14:46] LABS: Prostate Specific Ag Screen 1.3 ng/ml (0.0-4.0); Thyroid Stimulating Hormone 0.07 uIU/mL (0.465-4.68)
== END ==
PROVIDERS: Visit Provider Physician Assistant
DX: Z00.00 Encounter for general adult medical examination without abnormal findings (principal); Z12.5 Encounter for screening for malignant neoplasm of prostate
CPT/HCPCS: 80053; 80061; 82306; 84443; 85025; G0103

== ENCOUNTER → 2021-11-20 15:40 | Outpatient (CLI) | payer BC, SELFPAY ==
[2021-11-20 13:49] LABS: Alanine Aminotransferase 85 U/L (12-78); Albumin Level 4.8 g/dl (3.5-5.0); Albumin/Globulin Ratio 1.8 (1.1-1.8); Alkaline Phosphatase 74 U/L (38-126); Anion Gap 11.4 mEq/L (5-15); Aspartate Amino Transferase 48 U/L (17-59); Bilirubin,Total 1.3 mg/dl (0.2-1.3); Blood Urea Nitrogen 17 mg/dl (9-20); Calcium 9.8 mg/dl (8.4-10.2); Carbon Dioxide 29 mmol/L (22.0-30.0); Chloride 107 mmol/L (98-107); Estimated Glomerular Filt Rate 102 ml/min (>60); GFR (African American) 123 ML/MIN (>60); Globulin 2.7 g/dL (1.3-3.2); Glucose 118 mg/dl (74-100); Potassium 4.4 mmoL/L (3.5-5.1); Sodium 143 mmol/L (136-145); Total Protein,Serum 7.5 g/dl (6.3-8.2)
[2021-11-20 14:22] LABS: Thyroid Stimulating Hormone 1.15 uIU/mL (0.465-4.68)
[2021-11-21 11:24] LABS: Hep A Ab, IgM Negative (Negative); Hepatitis B Core Antibody IgM Negative (Negative); Hepatitis B Surface Antigen Negative (Negative); Hepatitis C Antibody <0.1 s/co ratio (0.0-0.9)
== END ==
PROVIDERS: Visit Provider Physician Assistant
DX: Z00.00 Encounter for general adult medical examination without abnormal findings (principal); R94.5 Abnormal results of liver function studies
CPT/HCPCS: 80053; 80074; 84443

== ENCOUNTER → 2022-07-19 11:23 | Outpatient (CLI) | payer BC, SELFPAY ==
[2022-07-19 17:15] LABS: Coronavirus 19, PCR Not Detected (NotDetected); Influenza A, PCR Not Detected (NotDetected); Influenza B, PCR Not Detected (NotDetected)
== END ==
PROVIDERS: PCP Physician Assistant; Visit Provider Physician Assistant
DX: R68.89 Other general symptoms and signs (principal)
CPT/HCPCS: C9803; U0003; U0005

== ENCOUNTER → 2022-08-16 20:41 | Outpatient (CLI) | payer BC, SELFPAY | PROVIDERS: PCP Student in an Organized Health Care Education/Training Program; Visit Provider Student in an Organized Health Care Education/Training Program | DX: R05.9 Cough, unspecified (principal); U07.1 COVID-19 | CPT/HCPCS: C9803; U0003; U0005 ==

== ENCOUNTER → 2022-08-30 08:40 | Outpatient (CLI) | payer BC, SELFPAY | PROVIDERS: PCP Physician Assistant; Visit Provider Physician Assistant | DX: R69 Illness, unspecified (principal) ==

== ENCOUNTER → 2022-08-30 08:40 | Outpatient (CLI) | payer BC, SELFPAY ==
[2022-08-30 15:21] LABS: Basophils # 0.2 K/mm3 (0-0.2); Basophils % 1.3 % (0.1-2.0); Eosinophils # 0.3 K/mm3 (0.0-0.4); Eosinophils % 2.3 % (0.1-12.0); Hematocrit 44.4 % (42.0-52.0); Hemoglobin 13.8 g/dL (14.1-18.0); Lymphocytes # 3.6 K/mm3 (0.7-4.5); Lymphocytes % 31.1 % (10-50); Mean Corpuscular HGB Conc 31.1 g/dL (31.8-35.4); Mean Corpuscular Hemoglobin 29.4 pg (27.0-31.2); Mean Corpuscular Volume 94.5 fl (80-94); Mean Platelet Volume 8.4 fl (7.4-10.4); Monocytes # 0.9 K/mm3 (0.1-1.0); Monocytes % 7.3 % (1.7-9.3); Neutrophils # 6.8 K/mm3 (1.8-7.8); Platelet Count 498 K/mm3 (142-424); Red Blood Count 4.69 M/mm3 (4.60-6.20); Red Cell Distribution Width 13.8 % (11.5-17.5); White Blood Count 11.6 K/mm3 (4.8-10.8)
[2022-08-30 15:32] LABS: Monoscreen (Rapid) Negative (Negative)
[2022-08-30 15:35] LABS: Chloride 107 mmol/L (98-107); Sodium 144 mmol/L (136-145)
[2022-08-30 15:36] LABS: Potassium 4.3 mmoL/L (3.5-5.1)
[2022-08-30 15:38] LABS: Alanine Aminotransferase 99 U/L (12-78); Albumin Level 4.3 g/dl (3.5-5.0); Albumin/Globulin Ratio 1.5 (1.1-1.8); Alkaline Phosphatase 88 U/L (38-126); Anion Gap 12.3 mEq/L (5-15); Aspartate Amino Transferase 56 U/L (17-59); Bilirubin,Total 0.9 mg/dl (0.2-1.3); Blood Urea Nitrogen 12 mg/dl (9-20); Carbon Dioxide 29 mmol/L (22.0-30.0); Cholesterol 179 mg/dl (140-200); Estimated Glomerular Filt Rate 101 ml/min (>60); GFR (African American) 122 ML/MIN (>60); Globulin 2.8 g/dL (1.3-3.2); Total Protein,Serum 7.1 g/dl (6.3-8.2); Triglycerides 216 mg/dl (30-150); VLDL Cholesterol 43 mg/dL (0-40)
[2022-08-30 15:39] LABS: Calcium 9.4 mg/dl (8.4-10.2); Chol/HDL Ratio 4.7 (1-3.5); Glucose 127 mg/dl (74-100); HDL Cholesterol 38 mg/dl (40-60)
[2022-08-30 15:53] LABS: 25-OH Vitamin D, Total 24.1 ng/mL (30-100)
[2022-08-30 15:58] LABS: Direct LDL Cholesterol 96.76 mg/dL (100-129)
[2022-08-30 16:09] LABS: Thyroid Stimulating Hormone 1.04 uIU/mL (0.465-4.68)
[2022-08-30 18:29] LABS: Hemoglobin A1C 6.2 % (4.0-6.0)
[2022-09-01 15:35] LABS: Peripheral Smear Review Scanned Result
[2022-09-03 18:04] LABS: EBV Ab VCA, IgM 82.2 U/mL (0.0-35.9); EBV Nuclear Antigen Ab, IgG 18.5 U/mL (0.0-17.9)
== END ==
PROVIDERS: PCP Physician Assistant; Visit Provider Physician Assistant
DX: R59.9 Enlarged lymph nodes, unspecified (principal); R73.09 Other abnormal glucose; E55.9 Vitamin D deficiency, unspecified
CPT/HCPCS: 80053; 80061; 82306; 83036; 84443; 85025; 86318; 86664; 86665

== ENCOUNTER 2023-04-09 19:16 | Emergency (ER) | payer OTHER, BC, SELFPAY ==
[2023-04-09 19:16] VITALS: BP 172/94; PULSE 95; RESP 18; TEMP 37.2; O2SAT 100
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
[2023-04-09 19:56] LABS: Basophils # 0.1 K/mm3 (0-0.2); Basophils % 0.5 % (0.1-2.0); Eosinophils # 0.4 K/mm3 (0.0-0.4); Eosinophils % 3.2 % (0.1-12.0); Hematocrit 42.6 % (42.0-52.0); Hemoglobin 14.6 g/dL (14.1-18.0); Lymphocytes # 3.5 K/mm3 (0.7-4.5); Lymphocytes % 26.7 % (10-50); Mean Corpuscular HGB Conc 34.2 g/dL (31.8-35.4); Mean Corpuscular Volume 87.6 fl (80-94); Mean Platelet Volume 7.5 fl (7.4-10.4); Monocytes # 0.8 K/mm3 (0.1-1.0); Neutrophils # 8.3 K/mm3 (1.8-7.8); Neutrophils % 63.6 % (37.0-80.0); Platelet Count 377 K/mm3 (142-424); Red Blood Count 4.86 M/mm3 (4.60-6.20)
[2023-04-09 19:57] LABS: Alanine Aminotransferase 62 U/L (12-78); Albumin/Globulin Ratio 1.5 (1.1-1.8); Alkaline Phosphatase 73 U/L (38-126); Anion Gap 15.6 mEq/L (5-15); Aspartate Amino Transferase 44 U/L (17-59); Blood Urea Nitrogen 10 mg/dl (9-20); Calcium 9.7 mg/dl (8.4-10.2); Carbon Dioxide 27 mmol/L (22.0-30.0); Chloride 105 mmol/L (98-107); Estimated Glomerular Filt Rate 78 ml/min (>60); GFR (African American) 94 ML/MIN (>60); Globulin 3.3 g/dL (1.3-3.2); Glucose 131 mg/dl (74-100); Potassium 3.6 mmoL/L (3.5-5.1); Sodium 144 mmol/L (136-145); Total Protein,Serum 8.3 g/dl (6.3-8.2)
[2023-04-09 19:58] LABS: Activated Partial Thrombo Time 25.4 seconds (22.8-30.6); INR 0.96 (0.9-1.1); Prothrombin Time 10.4 seconds (10.1-12.5)
--- NOTE | 2023-04-09 20:13 | PC.NURSE ---
pt a&ox4, moving all extremities, resp even unlabored, denies any new complaints. awaiting xray results. family remains at bedside
--- NOTE | 2023-04-09 21:08 | PC.NURSE ---
Per Dr Liang placed a sugartong/thumb spika splint on the pts left arm. Pt given instructions on care. CR
[2023-04-09 21:33] VITALS: BP 174/109; PULSE 65; RESP 20; TEMP 36.9; O2SAT 100
== END 2023-04-09 21:35 | disposition home or self-care (01) ==
PROVIDERS: Emergency Provider Emergency Medicine; PCP Emergency Medicine
DX: S52.592A Other fractures of lower end of left radius, initial encounter for closed fracture (principal); I10 Essential (primary) hypertension; E78.5 Hyperlipidemia, unspecified; K21.9 Gastro-esophageal reflux disease without esophagitis; F17.200 Nicotine dependence, unspecified, uncomplicated; Z79.82 Long term (current) use of aspirin; V29.008A Other motorcycle driver injured in collision with unspecified motor vehicles in nontraffic accident, initial encounter
CPT/HCPCS: 71045; 72170; 73060; 73080; 73090; 73110; 73130; 80053; 85025; 85610; 85730; 96374; 96375; 99285; J0131

== ENCOUNTER → 2023-05-07 08:05 | Outpatient (CLI) | payer OTHER, SELFPAY ==
--- NOTE | 2023-05-07 08:10 | XR_ITS ---
FINAL REPORT CLINICAL HISTORY: Left wrist fx, tingling from elbow to fingers FINDINGS: 3 views of the left wrist were obtained. The there is an oblique fracture through the base of the radial styloid. There is intra-articular extension. There is no dislocation. The joint spaces are intact. There is no soft tissue abnormality. IMPRESSION: Radial styloid fracture with intra-articular extension. Reviewed, Interpreted and Dictated by Lion Atwood MD Transcribed by Juan J Bright Authenticated and [facility]
--- NOTE | 2023-05-07 08:17 | XR_ITS ---
FINAL REPORT CLINICAL HISTORY: posterior elbow pain/swelling, tingling from elbow to fingers FINDINGS: LEFT ELBOW 3 views were obtained. There is no acute fracture or dislocation. There is no joint effusion. The joint spaces are intact. There is a small osteophyte along the posterior olecranon with mild overlying soft tissue swelling. IMPRESSION: No acute bony. Reviewed, Interpreted and Dictated by Lion Atwood MD Transcribed by Juan J Bright Authenticated and . [facility]
== END ==
LOC: RAD 08:08
PROVIDERS: PCP Emergency Medicine; Visit Provider Orthopaedic Surgery
DX: S52.502A Unspecified fracture of the lower end of left radius, initial encounter for closed fracture (principal); M25.522 Pain in left elbow; Y99.9 Unspecified external cause status
CPT/HCPCS: 73080; 73110

== ENCOUNTER → 2023-05-21 07:56 | Outpatient (CLI) | payer OTHER, SELFPAY ==
--- NOTE | 2023-05-21 07:59 | XR_ITS ---
FINAL REPORT CLINICAL HISTORY: fracture COMPARISON: May 07, 2023 FINDINGS: 3 views of the left wrist were obtained. There has been interval healing of a distal radius fracture with callus formation. There is no change in alignment. The joint spaces are intact. There is no soft tissue abnormality. IMPRESSION: Interval healing of distal left radius fracture with callus formation. Reviewed, Interpreted and Dictated by Mich Wells III, MD Transcribed by Juan J Bright Authenticated and . [facility]
== END ==
PROVIDERS: PCP Emergency Medicine; Visit Provider Orthopaedic Surgery
DX: M25.532 Pain in left wrist (principal); S52.592A Other fractures of lower end of left radius, initial encounter for closed fracture
CPT/HCPCS: 73110

== ENCOUNTER 2023-05-21 09:29 | Outpatient (RCR) | payer OTHER, SELFPAY | END 2023-05-21 10:30 | disposition home or self-care (01) | LOC: OT 09:29 | PROVIDERS: Visit Provider Orthopaedic Surgery | DX: S52.502A Unspecified fracture of the lower end of left radius, initial encounter for closed fracture (principal) ==

== ENCOUNTER 2023-09-11 18:53 | Outpatient (CLI) | payer BC, SELFPAY | END 2023-09-11 23:59 | LOC: LAB.DROPOF 18:53 | PROVIDERS: PCP Nurse Practitioner Family; Visit Provider Nurse Practitioner Family | DX: J02.9 Acute pharyngitis, unspecified (principal) | CPT/HCPCS: 87070 ==

== ENCOUNTER 2025-03-19 09:27 | Outpatient (CLI) | payer BC, SELFPAY ==
[2025-03-19 16:21] LABS: Hematocrit 44.0 % (42.0-52.0); Hemoglobin 14.1 g/dL (14.1-18.0); Immature Granulocytes % 0.2 %; Mean Corpuscular HGB Conc 32.0 g/dL (31.8-35.4); Mean Corpuscular Hemoglobin 28.7 pg (27.0-31.2); Mean Corpuscular Volume 89.6 fl (80-94); Nucleated Red Blood Cells % 0 %; Platelet Count 347 K/mm3 (142-424); Red Blood Count 4.91 M/mm3 (4.60-6.20); Red Cell Distribution Width-SD 41.3 fL; White Blood Count 8.7 K/mm3 (4.8-10.8)
[2025-03-19 16:42] LABS: Alanine Aminotransferase 45 U/L (12-78); Albumin Level 4.9 g/dl (3.5-5.0); Albumin/Globulin Ratio 1.9 (1.1-1.8); Alkaline Phosphatase 90 U/L (38-126); Anion Gap 14.3 mEq/L (5-15); Aspartate Amino Transferase 34 U/L (17-59); Bilirubin,Total 1.3 mg/dl (0.2-1.3); Blood Urea Nitrogen 14 mg/dl (9-20); Calcium 10.2 mg/dl (8.4-10.2); Carbon Dioxide 28 mmol/L (22.0-30.0); Chloride 106 mmol/L (98-107); Cholesterol 172 mg/dl (140-200); Creatinine,Serum 1.00 mg/dl (0.66-1.25); Estimated Glomerular Filt Rate 77 ml/min (>60); GFR (African American) 94 ML/MIN (>60); Globulin 2.6 g/dL (1.3-3.2); Glucose 95 mg/dl (74-100); HDL Cholesterol 38 mg/dl (40-60); Potassium 4.3 mmoL/L (3.5-5.1); Sodium 144 mmol/L (136-145); Total Protein,Serum 7.5 g/dl (6.3-8.2); Triglycerides 156 mg/dl (30-150)
[2025-03-19 17:14] LABS: Thyroid Stimulating Hormone 1.31 uIU/mL (0.465-4.68)
[2025-03-19 17:30] LABS: Hepatitis C Ab Qual. W/ RFX NEGATIVE (Negative)
[2025-03-19 18:14] LABS: Hemoglobin A1C 5.7 % (4.0-6.0)
[2025-03-20 08:32] LABS: Hepatitis B Surface Antigen Negative (Negative)
--- OUTSIDE RECORDS SUMMARY | 2025-03-20 10:20 | XMS_ITS | Clinical Summary ---
[facility] Address [address] [place] [address] Care Team Providers Care Material Handler 1St Shift Name Role Phone Provider, No Known Primary Care Provider Unavail able Social History Tobacco Use Types Packs/Day Years Used Date Smoking Tobacco: Never Assessed Abuse Screen Answer Date Recorded Unsafe at Home or Work/School Not on file Feels Threatened by Someone? Not on file 06/2023 Does Anyone Keep You from Co ntacting Others or Doint Things Outside the Home? Not on file 05/29/2023 Physical Sign of Abuse Present Not on file 1 Housing Stability Answer Date Recorded Current Living Arrangements Not on file 05/19 Potentially Unsafe Housing Conditions Not on charles e 05/29/2023 Family and Community Support Answer Daniel e Recorded Help with Day-to-Day Activities Not on file 05/29/2023 Lonely or Isolated Not on file 05/29/2023 Employment Answer Date Recorded Do you want help finding or keeping work or a nahid b? Not on file 05/29/2023 Disabilities Answer Date Recorded Concentrating, Remembering, or Making Decisions Difficulty Not on file 05/29/2023 Doing Errands Independently Difficulty Not on fi le 05/29/2023 Education Answer Date Recorded Help with school or training? Not on file Preferred Language Not on file 05/29/2023 Sex and Gender Information Value Date Recorded Sex Assigned at Not on file Legal Sex Male 9:20 AM EDT Gender Identity Not on file Sexual Orientation Not on file Plan of Treatment Health Maintenance Due Date Last Done Comments ANNUAL PHYSICAL 1970 HEPATITIS C SCREENING 1969 TDAP/TD VACCINES (1 - Tdap) 01/08/1988 COLOGUARD 2014 COLON CANCER SCREENING 5 YEAR SIGMOIDOSCOPY 2014 COLONOSCOPY 2014 [address] CANCER SCREENING 2014 CT COLONOGRAPHY 2014 FECAL OCCULT BLOOD TEST 2014 FIT Testing (1 year) 2014 Pneumococcal Vaccine 50+ (1 of 1 - PCV) 2019 ZOSTER VACCINE (1 of 2) 2019 COVID-19 Vaccine (1 - season) 2024 INFLUENZA VACCINE 05/19/2025 Care Teams Material Handler 1St Shift Relationship Specialty Start Date End Date Provider, [place] [address] PCP - General 11/14/15
[2025-03-20 11:17] LABS: Testosterone,Total 306 ng/dL (264-916)
== END 2025-03-19 23:59 | disposition home or self-care (01) ==
LOC: LAB.DROPOF 03-20 10:18
PROVIDERS: PCP Family Medicine; Visit Provider Family Medicine
DX: E78.5 Hyperlipidemia, unspecified (principal); R73.09 Other abnormal glucose; I10 Essential (primary) hypertension; Z11.59 Encounter for screening for other viral diseases; R79.89 Other specified abnormal findings of blood chemistry
CPT/HCPCS: 80053; 80061; 83036; 84403; 84443; 85025; 86803; 87340; 87389

== ENCOUNTER 2025-03-26 09:48 | Outpatient (CLI) | payer BC, SELFPAY ==
--- OUTSIDE RECORDS SUMMARY | 2025-03-29 09:55 | XMS_ITS | Clinical Summary ---
[facility] Address [address] [place] [address] Care Team Providers Care Surveyor Chain Helper Name Role Phone Provider, No Known Primary [...] season) 2024 INFLUENZA VACCINE 05/19/2025 Care Teams Surveyor Chain Helper Relationship Specialty Start Date End Date Provider, [place] [address] PCP - General 11/14/15
== END 2025-03-26 23:59 | disposition home or self-care (01) ==
LOC: LAB.DROPOF 03-29 09:48
PROVIDERS: PCP Family Medicine; Visit Provider Family Medicine
DX: Z12.5 Encounter for screening for malignant neoplasm of prostate (principal)
CPT/HCPCS: G0103

== ENCOUNTER 2025-04-12 15:00 | Outpatient (CLI) | payer BC, SELFPAY ==
[2025-04-12 16:36] LABS: Microscopic, Urine URINE MICROSCOPIC (MICROSCOPIC)
[2025-04-12 22:43] LABS: Bilirubin,Urine Negative (Negative); Color,Urine YELLOW (Yellow); Glucose,Urine (UA) Negative (Negative); Ketones,Urine Negative (Negative); Leukocyte Esterase,Urine Negative (Negative); PH,Urine 7.5 (5.0-8.5); Protein,Urine Negative (Negative); Specific Gravity, Urine 1.010 (1.005-1.030); Urobilinogen,Urine 0.2 EU/dl (0.2)
[2025-04-12 23:04] LABS: RBC,Urine Occasional #/hpf (0-3); WBC,Urine Occasional #/hpf (0-3)
--- OUTSIDE RECORDS SUMMARY | 2025-04-14 10:17 | XMS_ITS | Clinical Summary ---
[facility] [address] [place] [address] Care Team Providers Care Whizzer Name Role Phone Provider, No Known Primary [...] season) 2024 INFLUENZA VACCINE 05/19/2025 Care Teams Whizzer Relationship Specialty Start Date End Date Provider, [place] [address] PCP - General 11/14/15
== END 2025-04-12 23:59 | disposition home or self-care (01) ==
LOC: LAB.DROPOF 04-14 10:11
PROVIDERS: PCP Urology; Visit Provider Urology
DX: N40.0 Benign prostatic hyperplasia without lower urinary tract symptoms (principal); R97.20 Elevated prostate specific antigen [PSA]; R53.83 Other fatigue
CPT/HCPCS: 81001; 87086

== ENCOUNTER 2025-05-06 11:29 | Outpatient (CLI) | payer BC, SELFPAY ==
--- OUTSIDE RECORDS SUMMARY | 2025-05-06 11:34 | XMS_ITS | Clinical Summary ---
[facility] [address] [place] [address] Care Team Providers Care Piece Dyeing Machine Tender Name Role Phone Provider, No Known Primary [...] 2) 2019 COVID-19 Vaccine (1 - season) 2025 INFLUENZA VACCINE 05/19/2025 Care Teams Piece Dyeing Machine Tender Relationship Specialty Start Date End Date Provider, [place] [address] PCP - General 11/14/15
[2025-05-07 08:33] LABS: FSH 6.1 mIU/mL (1.5-12.4); LH 4.7 mIU/mL (1.7-8.6); PSA, Free 0.79 ng/mL; Testosterone,Total 322 ng/dL (264-916)
== END 2025-05-06 23:59 | disposition home or self-care (01) ==
LOC: LAB 11:30
PROVIDERS: PCP Family Medicine; Visit Provider Urology
DX: N40.0 Benign prostatic hyperplasia without lower urinary tract symptoms (principal); R53.83 Other fatigue
CPT/HCPCS: 36415; 82670; 83001; 83002; 84146; 84153; 84154; 84270; 84403

== ENCOUNTER 2025-05-10 09:35 | Outpatient (CLI) | payer BC, SELFPAY ==
--- OUTSIDE RECORDS SUMMARY | 2025-05-10 09:53 | XMS_ITS | Clinical Summary ---
[facility] Address [address] [place] [address] Care Team Providers Care Brazer Electronic Name Role Phone Provider, No Known Primary [...] 2019 ZOSTER VACCINE (1 of 2) 2019 INFLUENZA VACCINE 03/19/2025 Care Teams Brazer Electronic Relationship Specialty Start Date End Date Provider, No Known [facility] [place] [address] PCP - General 11/14/15
[2025-05-11 08:40] LABS: PSA, Free 0.57 ng/mL; Testosterone,Total 326 ng/dL (264-916)
== END 2025-05-10 23:59 | disposition home or self-care (01) ==
LOC: LAB 09:36
PROVIDERS: PCP Family Medicine; Visit Provider Urology
DX: R97.20 Elevated prostate specific antigen [PSA] (principal); R53.83 Other fatigue
CPT/HCPCS: 36415; 84153; 84154; 84270; 84403